=== PATIENT | female | born 1965 | race Caucasian/White ===

== ENCOUNTER 2018-11-06 20:55 | Emergency (ER) | payer MEDICAID ==
[~2018-11-06] VITALS: Ht 162.6 cm; Wt 61.1 kg
[2018-11-06 20:57] VITALS: BP 137/76
== END 2018-11-06 22:04 | disposition home or self-care (01) ==
LOC: ED 22:01
DX: B35.3 Tinea pedis (principal); B36.0 Pityriasis versicolor; F17.200 Nicotine dependence, unspecified, uncomplicated
CPT/HCPCS: 99282

== ENCOUNTER 2019-04-24 09:38 | Emergency (ER) | payer SELFPAY ==
[~2019-04-24] VITALS: Ht 162.6 cm; Wt 58.8 kg
--- NOTE | 2019-04-24 09:55 | NUR ---
PT TO ED FROM HOME. DX W/ UTI 3 DAYS AGO, NEVER FILLED RX BC [employer]ICA[employer] [place] DIDN'T COVER IT. NOW C/O INCR FREQUENCY, INCR PAIN, FLANK AND LOWER ABD PAIN. DENEIS N/V/FEVER/CHILLS/HEMATURIA. VSS. GAIT STEADY, TO BATHROOM FOR UA. AWAITING MD.
[2019-04-24 10:49] LABS: BASOPHILS # (AUTO) 0.04 x10^3/uL (0-0.1); BASOPHILS % (AUTO) 1 % (0-1); EOSINOPHILS # (AUTO) 0.15 x10^3/uL (0-0.4); EOSINOPHILS % (AUTO) 2 % (1-7); LYMPHOCYTES # (AUTO) 1.82 x10^3/uL (1-3.4); LYMPHOCYTES % (AUTO) 25 % (22-44); MD NO; MEAN CORPUSCULAR HEMOGLOBIN 30.2 pg (27.0-34.8); MEAN CORPUSCULAR HGB CONC 32.7 g/dL (32.4-35.8); MEAN CORPUSCULAR VOLUME 92.4 fL (80-100); MEAN PLATELET VOLUME 7.7 fL (7.4-10.4); MONOCYTES # (AUTO) 0.33 x10^3/uL (0.2-0.8); MONOCYTES % (AUTO) 5 % (2-9); NEUTROPHILS # (AUTO) 4.86 x10^3/uL (1.8-6.8); NEUTROPHILS % (AUTO) 68 % (42-75); PLATELET COUNT 325 x10^3/uL (130-400); RED BLOOD COUNT 4.23 x10^6/uL (3.82-5.3)
[2019-04-24 10:58] LABS: ALBUMIN 3.5 g/dL (3.4-5.0); ANION GAP 6 mmol/L (5-15); CALCIUM 8.2 mg/dL (8.5-10.1); CHLORIDE 102 mmol/L (98-107); CREATININE 0.73 mg/dL (0.55-1.02)
[2019-04-24 11:42] LABS: HCG UR SG 1.018 (1.003-1.030); MICROSCOPIC AUTO
[2019-04-24 11:43] LABS: CULTURE INDICATED? YES
[2019-04-24] MEDS ORDERED: CEFTRIAXONE 1,000 MG IM ONE (12:00)
[2019-04-24] MEDS ORDERED: CEFTRIAXONE 1,000 MG ONE (12:00)
[2019-04-24 12:08] VITALS: BP 102/62
== END 2019-04-24 12:24 | disposition home or self-care (01) ==
LOC: ED 10:16
DX: N30.00 Acute cystitis without hematuria (principal)
CPT/HCPCS: 36415; 80048; 81001; 81025; 82040; 85025; 87077; 87086; 87186; 96372; 99283; J0696

== ENCOUNTER 2019-04-28 13:01 | Emergency (ER) | payer MEDICAID, OTHER ==
[~2019-04-28] VITALS: Ht 162.6 cm; Wt 58.8 kg
[2019-04-28 13:03] VITALS: BP 109/59
--- NOTE | 2019-04-28 14:05 | NUR ---
PT LEFT WITHOUT BEING SEEN
== END 2019-04-28 14:06 | disposition left against medical advice (07) ==
LOC: ED 14:00
DX: Z53.21 Procedure and treatment not carried out due to patient leaving prior to being seen by health care provider (principal)

== ENCOUNTER 2019-05-18 11:23 | Emergency (ER) | payer SELFPAY ==
[~2019-05-18] VITALS: Ht 162.6 cm; Wt 50.0 kg
[2019-05-18 11:46] VITALS: BP 129/80
--- NOTE | 2019-05-18 12:10 | NUR ---
neosporin dressing applied to wounds
== END 2019-05-18 12:33 | disposition home or self-care (01) ==
LOC: ED 11:55
DX: S61.411A Laceration without foreign body of right hand, initial encounter (principal); F17.200 Nicotine dependence, unspecified, uncomplicated; X58.XXXA Exposure to other specified factors, initial encounter; Y93.89 Activity, other specified; Y92.098 Other place in other non-institutional residence as the place of occurrence of the external cause; Y99.8 Other external cause status
CPT/HCPCS: 99283

== ENCOUNTER 2019-06-13 19:50 | Emergency (ER) | payer OTHER ==
[~2019-06-13] VITALS: Ht 162.6 cm; Wt 59.5 kg
[2019-06-13 19:53] VITALS: BP 113/64
== END 2019-06-13 20:52 | disposition home or self-care (01) ==
LOC: ED 20:00
DX: S61.111A Laceration without foreign body of right thumb with damage to nail, initial encounter (principal); Z72.9 Problem related to lifestyle, unspecified; X58.XXXA Exposure to other specified factors, initial encounter; Y93.89 Activity, other specified; Y92.89 Other specified places as the place of occurrence of the external cause; Y99.8 Other external cause status
CPT/HCPCS: 99282